=== PATIENT | female | born 1995 | race Caucasian/White ===

== ENCOUNTER 2021-07-15 16:01 | Emergency (ER) | payer OTHER, BC, SELFPAY ==
[2021-07-15 16:21] VITALS: BP 111/78; PULSE 89; RESP 16; TEMP 36.9; O2SAT 98; BMI 34.1
[2021-07-15 19:42] VITALS: BP 115/69; PULSE 81; RESP 17; TEMP 37.1; O2SAT 100
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
[2021-07-15 21:17] VITALS: BP 117/79; PULSE 78; RESP 16; O2SAT 100
[2021-07-15] MEDS: Cyclobenzaprine HCl 10 MG TABLET PO (21:18)
[2021-07-15] MEDS: Ibuprofen 600 MG TABLET PO (21:18)
--- NOTE | 2021-07-15 22:36 | PC.NURSE ---
PT UNDERSTANDS TO FOLLOW UP WITH PCP, RETURN IF PAIN NOT MANAGEABLE WITH OTC AND RX MEDICATIONS. PT AMBULATORY WITH [facility]. REPORTS HER PAIN HAS IMPROVED FOLLOWING MEDICATIONS RECEIVED. PT WAITING WITH [facility]END IN [facility].
== END 2021-07-15 22:38 | disposition home or self-care (01) ==
PROVIDERS: Emergency Provider Emergency Medicine Emergency Medical Services
DX: S39.012A Strain of muscle, fascia and tendon of lower back, initial encounter (principal); S30.1XXA Contusion of abdominal wall, initial encounter; S13.9XXA Sprain of joints and ligaments of unspecified parts of neck, initial encounter; V43.52XA Car driver injured in collision with other type car in traffic accident, initial encounter; Y93.9 Activity, unspecified; Y92.410 Unspecified street and highway as the place of occurrence of the external cause; Y99.9 Unspecified external cause status; Z79.899 Other long term (current) drug therapy
CPT/HCPCS: 99283; 99285

== ENCOUNTER 2021-08-18 11:41 | Outpatient (REF) | payer BC, SELFPAY | END 2021-08-18 11:42 | disposition home or self-care (01) | LOC: HO.LNP 11:41 | PROVIDERS: Visit Provider Physician Assistant Medical | DX: L02.91 Cutaneous abscess, unspecified (principal) | CPT/HCPCS: 87071; 87205 ==

== ENCOUNTER 2022-12-04 17:00 | Outpatient (REF) | payer BC, SELFPAY ==
[2022-12-05 13:03] LABS: BV Int Neg Control Negative (Negative); BV Int Pos Control Positive (Positive)
== END 2022-12-04 17:01 | disposition home or self-care (01) ==
LOC: HO.LNP 17:00
PROVIDERS: Visit Provider Internal Medicine
DX: N76.0 Acute vaginitis (principal); B96.89 Other specified bacterial agents as the cause of diseases classified elsewhere
CPT/HCPCS: 87480; 87510; 87660

== ENCOUNTER 2023-02-07 09:29 | Outpatient (REF) | payer BC, SELFPAY ==
[2023-02-07 11:34] LABS: Appearance Urine Clear; Color Urine Yellow; Glucose Urine UA Negative (Negative); Leukocyte Esterase Urine Small (1+) (Negative); Nitrite Urine Negative (Negative); Specific Gravity - Urine >= 1.030 (1.005-1.025); UMIC TRIGGER UA YES; Urine Blood Negative (Negative); Urine Ketones Negative (Negative); Urine Protein Trace mg/dL (Neg-Trace)
[2023-02-07 11:38] LABS: Bacteria Urine 1+ (None Seen); Hyaline Casts Urine 0-2 /LPF (0-2); RBC Urine 0-2 /HPF (0-2)
[2023-02-07 11:44] LABS: Basophils Absolute Auto 0.1 X10*3/uL (0.0-0.2); Basophils Percent Auto 0.7 % (0-2); Eosinophils Absolute Auto 0.1 X10*3/uL (0.0-0.4); Eosinophils Percent Auto 1.8 % (0-4); Hemoglobin 13.3 g/dl (12.0-16.0); Imm Gran Abs Auto 0.01 X10*3/uL (0.00-0.03); Imm Gran Pct Auto 0.1 % (0.0-0.4); Lymphocytes Absolute Auto 2.2 X10*3/uL (1.2-4.9); Lymphocytes Percent Auto 28.2 % (20-40); MANUAL DIFF FLAG SCAN; Mean Corpuscular HGB Conc 31.7 g/dl (31.0-35.0); Mean Corpuscular Hemoglobin 26.6 pg (27.0-33.0); Mean Platelet Volume 11.8 fL (9.4-12.3); Monocytes Absolute Auto 0.5 X10*3/uL (0.1-1.2); Monocytes Percent Auto 6.1 % (2-11); Neutrophils Absolute Auto 4.8 x10*3/uL (2.0-8.3); Neutrophils Percent Auto 63.1 % (45-73); PLT CLUMP 1; Red Cell Distribution Width 14.4 % (11.0-16.0); SCAN SMEAR FLAG 1
[2023-02-07 11:45] LABS: Platelet Count 165 X10*3/uL (160-400); White Blood Count 7.7 X10*3/uL (4.8-10.8)
[2023-02-07 11:59] LABS: SLIDE REVIEW VERIFIED
[2023-02-07 12:04] LABS: HBS Num1 0.83 mIU/mL (0-7.99); HIV AB/AG Nonreactive (Nonreactive); HIV Num 1 0.06 S/CO (0.00-0.99); ~Hepatitis B Surface Antibody NONREACTIVE (Nonreactive)
[2023-02-07 12:06] LABS: Syphilis Screen Nonreactive (Nonreactive)
[2023-02-07 12:07] LABS: Alanine Aminotransferase 15 U/L (0-31); Albumin Level 4.4 g/dL (3.5-5.0); Alkaline Phosphatase 76 U/L (39-117); Anion Gap 11 (12-20); Aspartate Amino Transferase 18 U/L (5-31); Bilirubin Total 0.6 mg/dL (0.0-1.0); Blood Urea Nitrogen 11 mg/dL (9-16); Calcium 9.4 mg/dL (8.4-10.2); Carbon Dioxide 25 mmol/L (22-29); Chloride 108 mmol/L (96-108); Cholesterol 144 mg/dL; Estimated Glomerular Filt Rate > 60; Glucose Fasting 84 mg/dL (60-99); HDL Cholesterol 37 mg/dL; LDL Cholesterol Calculated 95 mg/dl; Potassium 4.1 mmol/L (3.3-5.1); Sodium 140 mmol/L (135-145); Total Protein 7.6 g/dL (6.5-8.0); Triglycerides 63 mg/dL
[2023-02-07 14:25] LABS: CT PCR NOT DETECTED (Not Detect.); NG PCR NOT DETECTED (Not Detect.)
[2023-02-10 07:39] LABS: TS Negative Control Passed; TS Panel A 0; TS Panel B 0; TS Positive Control Passed; TSpotTB Negative (Negative)
== END 2023-02-07 09:30 | disposition home or self-care (01) ==
LOC: HO.HMGCLDS 09:29
PROVIDERS: PCP Internal Medicine; Visit Provider Internal Medicine
DX: Z00.00 Encounter for general adult medical examination without abnormal findings (principal); Z11.4 Encounter for screening for human immunodeficiency virus [HIV]; J45.909 Unspecified asthma, uncomplicated; Z20.2 Contact with and (suspected) exposure to infections with a predominantly sexual mode of transmission
CPT/HCPCS: 0353U; 80053; 80061; 81001; 85025; 86481; 86706; 86780; 87389

== ENCOUNTER 2023-06-18 10:11 | Outpatient (REF) | payer BC, SELFPAY ==
[2023-06-19 04:41] LABS: ~Hepatitis B Surface Antibody REACTIVE (Nonreactive)
== END 2023-06-18 10:12 | disposition home or self-care (01) ==
LOC: HO.HMGCLDS 10:11
PROVIDERS: PCP Internal Medicine; Visit Provider Internal Medicine
DX: Z00.00 Encounter for general adult medical examination without abnormal findings (principal)
CPT/HCPCS: 36415; 86706

== ENCOUNTER 2023-09-03 12:45 | Outpatient (AMB) | payer BC, SELFPAY ==
--- OUTSIDE RECORDS SUMMARY | 2023-09-03 12:46 | XMS_ITS | Continuity of Care Document ---
Author Name Unknown Organization [facility] Adult Address [address] [place] [address]- Care Team Providers Care Chess Instructor Name Role Phone Mi MAY, [facility] Primary Care Physician ( [phone] Encounter [facility] [place] Date(s): 02/20/20 - 03/01/20 [facility] Adult [address] [place] [address] [facility] Attending Physician: Jessica Kelley Admitting Physician: Jessica Kelley Referring Physician: AdmJessica alfredo Allergies, Adverse Reactions, Alerts Substance Reaction Severity Status doxycycline Stomach upset Active penicillin Swollen face Rash Active Immunizations Given and Recorded Vaccine Date Status Refusal Reason Influenza Virus Vaccine (oldterm) 08/28/19 Recorde d tetanus/diphtheria/pertussis, acel(Tdap) 01/02/19 Given influenza virus vaccine, inactivated 01/02/19 Give n Problem List Condition Effective Dates Status Health Status Inform ant Anxiety(Confirmed) Active Obesity(Confirmed) Active Social History Social History Type Response Smoking Status Former smoker, quit more than 30 days ago; Tobacco user in household: No entered on: 01/06/20 Sex
--- OUTSIDE RECORDS SUMMARY | 2023-09-03 12:46 | XMS_ITS | Continuity of Care Document ---
Author Name Unknown Organization [facility] Adult Address [address] [place] [address]- Care Team Providers Care Green Coffee Blender Name Role Phone Brenda Stark MD Primary Care Physician [place] [facility] [place](s): 01/06/20 - 01/13/20 [facility] [address] [place] [id number] [facility] Encounter Diagnosis Minor depression(Discharge Diagnosis) - 01/06/20 Obesity(Discharge Diagnosis) - 01/06/20 Annual physical exam(Discharge Diagnosis) - 01/06/20 Atypical nevi(Discharge Diagnosis) - 01/06/20 Attending Physician: Brenda Stark MD Allergies, Adverse Reactions, Alerts Substance Reaction Severity Status doxycycline Stomach upset Active penicillin Swollen face Rash Active Immunizations Given and Recorded Vaccine Date Status Refusal Reason Influenza Virus Vaccine (oldterm) 08/28/19 Recorde d tetanus/diphtheria/pertussis, acel(Tdap) 01/02/19 Given influenza virus vaccine, inactivated 01/02/19 Give n Medications Penicillin Tablet By Mouth, Every 6 hours, Maintenance, 06/17/19 13:13:18 EDT Start Date: 06/17/19 Status: Ordered Problem List Condition Effective Dates Status Health Status Inform ant Obesity(Confirmed) Active Diagnosis Diagnosis Type Effective Dates Health Status Clinical Service Informant Minor depression Discharge Diagnosis 01/06/20 Obesity Discharge Diagnosis 01/06/20 Annual physical exam Discharge Diagnosis 01/06/20 Atypical nevi Discharge Diagnosis 01/06/20 Vital Signs Most recent to oldest [Reference Range]: 1 Height 165 cm (01/06/20 9:00 AM) Weight 90.5 kg (01/06/20 9:00 AM) Pulse Rate [55-90 bpm] 65 bpm (01/06/20 9:00 AM) Body Mass Index [18.5-24.99] 33.24 *>HHI* (01/06/20 9:00 AM) Blood Pressure [90-138/55-84 mm Hg] 110/ 70mm Hg (01/06/20 9:00 AM) Respiratory Rate [16-30 br/min] 16 br/mi n (01/06/20 9:00 AM) Temperature [96.8-100.4 DegF] 98.1 DegF (01/06/20 9:00 AM) Mode of Delivery (Oxygen) Room air (01/06/20 9:00 AM) Blood pressure sites Arm, left (01/06/20 9:00 AM) Temperature Route Oral (01/06/20 9:00 AM) Weight Obtained Via Standing scale (01/06/20 9:00 AM) Social History Social History Type Response Smoking Status Former smoker, quit more than 30 days ago; Tobacco user in household: No entered on: 01/06/20 Sex
--- OUTSIDE RECORDS SUMMARY | 2023-09-03 12:46 | XMS_ITS | Continuity of Care Document ---
Author Name Unknown Organization [facility] Adult Address [address] [place] [address]- Care Team Providers Care Wet Primer Powder Blender Name Role Phone Mi MAY, [facility] Primary Care Physician ( [phone] Encounter [facility] [place] Date(s): 08/18/21 - 09/17/21 [facility] Adult [address] [place] [address]- Allergies, Adverse Reactions, Alerts Substance Reaction Severity [...]
--- OUTSIDE RECORDS SUMMARY | 2023-09-03 12:46 | XMS_ITS | Continuity of Care Document ---
Author Name Unknown Organization [facility] Adult Address [address] [place] [address]- Care Team Providers Care Social Work Professor Name Role Phone Mi MAY, [facility] Primary Care Physician Encounter [facility] [place] Date(s): 02/08/22 - 03/10/22 [facility] Adult [address] [place] [address]- Allergies, Adverse Reactions, Alerts Substance Reaction Severity [...]
--- OUTSIDE RECORDS SUMMARY | 2023-09-03 12:47 | XMS_ITS | Continuity of Care Document ---
Author Name Unknown Organization [facility] Adult Address [address] [place] [address]- Care Team Providers Care Printing Equipment Mechanic Apprentice Name Role Phone Brenda Stark MD Primary Care Physician ( [phone] Encounter [facility] [place] Date(s): 02/20/20 - 02/27/20 [facility] Adult [address] [place] [id number] [facility] Encounter Diagnosis Anxiety(Discharge Diagnosis) - 02/20/20 Attending Physician: Brenda Stark MD Allergies, Adverse Reactions, Alerts Substance Reaction Severity Status doxycycline Stomach upset Active penicillin Swollen face Rash Active Immunizations Given and Recorded Vaccine Date Status Refusal Reason Influenza Virus Vaccine (oldterm) 08/28/19 Recorde d tetanus/diphtheria/pertussis, acel(Tdap) 01/02/19 Given influenza virus vaccine, inactivated 01/02/19 Give n Problem List Condition Effective Dates Status Health Status Inform ant Anxiety(Confirmed) Active Obesity(Confirmed) Active Diagnosis Diagnosis Type Effective Dates Health Status Clini christopher Service Informant Anxiety Discharge Diagnosis 02/20/20 Social History Social History Type Response Smoking Status Former smoker, quit more than 30 days ago; Tobacco user in household: No entered on: 01/06/20 Sex
--- OUTSIDE RECORDS SUMMARY | 2023-09-03 12:47 | XMS_ITS | Continuity of Care Document ---
Author Name Unknown Organization [facility] Adult Address [address] [place] [address]- Care Team Providers Care Inspector Timers Name Role Phone Mi MAY, [facility] Primary Care Physician Encounter [facility] [place] Date(s): 01/24/22 - 02/23/22 [facility] Adult [address] [place] [address]- Allergies, Adverse Reactions, Alerts Substance Reaction Severity [...]
[2023-09-03 14:35] VITALS: BP 114/80; PULSE 74; TEMP 36.7; O2SAT 99; BMI 37.2
--- NOTE | 2023-09-03 14:35 | AM.OFFWIN_ITS ---
Intake Vital Signs 09/03/23 14:35 Height 5 ft 5 in Weight 223 lb 8 oz BMI 37.2 BP 114/80 Blood Pressure Location Lt brachial Position Sitting Pulse 74 Pulse Source Pulse Oximeter Temp 98.0 F Temp Source Oral Pulse Oximetry (%) 99 Oxygen Delivery Method Room Air Intake Visit Reasons: EP Lower back pain Intake Note: Pt presents to the office today for c/o lower back pain that started yesterday morning 09/02/23. Pt doesn't recall any injury to her back. 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 Patient Tobacco Use Status: Never used Tobacco Allergies Penicillins [PCN] Allergy (Unknown, Verified 09/03/23 14:38) UNKNOWN HPI EP Lower back pain HPI Details patient is a 28-year-old female who presents today for a sick visit. Patient has no significant past medical history. patient's chief complaint right sided lower back pain x1 day. Patient states that they woke up yesterday with pain in the right lower back, patient denies any falls , cracks or pops. Patient states they have been using lidocaine patches, Motrin and Biofreeze with mild effect. 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 Patient denies burning or numbness down her legs. [facility] Family History Father Hypertension Mother Hypertension Type 2 diabetes mellitus Social History (Updated 09/03/23 @ 14:38 by Kathleen Trujillo MA) Household Members Other:: lives with girlfriend, works as EMT in [place] Housing: Apartment Alcohol intake: current Alcohol intake frequency: a few times a month Patient Tobacco Use Status: Never used Tobacco e-Cigarette/Vaping Use: Never Used Current occupational status: employed Cognitive needs: No Hearing needs: No Vision needs: No Review of Systems Musc Reports as per HPI Physical Exam Vital Signs: Last Vital Signs Temp 98.0 F 09/03/23 14:35 Pulse 74 09/03/23 14:35 BP 114/80 09/03/23 14:35 Pulse Ox 99 09/03/23 14:35 Oxygen Delivery Method Room Air 09/03/23 14:35 BMI result Body Mass Index 37.2 Const General: cooperative and no acute distress Orientation/consciousness: patient oriented x3 Limitations: no limitations Back/Spine/Pelvis Thoracic/Lumbar Spine: thoracic and lumbar spine normal to inspection, pain with thoraco-lumbar ROM ( Mild pain), straight leg raise positive ( right-sided) and other ( no obvious deformity, no point tenderness over spine) Sacroiliac joints: on the right Sacrum: no tenderness and No sacral edema Neuro General: patient oriented x3 Assessment & Plan Assessment & Plan (1) Lower back injury: Code(s): S39.92XA - Unspecified injury of lower back, initial encounter Qualifiers: Encounter type: initial encounter Qualified Code(s): S39.92XA - Unspecified injury of lower back, initial encounter Plan patient is instructed to continue using Motrin in lidocaine per instructions. Patient instructed to rest back and use ergonomically friendly movements. Patient will be given 10 mg Flexeril to be taken at night, educated to not operate heavy machinery. Patient instructed to return to the walk-in clinic if symptoms increase. Medications: New cyclobenzaprine 10 mg PO BEDTIME 7 tabs 0RF Coding Level of Care Code Est Pt Level 3 (10348) Diagnoses Injury of low back, initial encounter S39.92XA Encounter type: initial encounter Time Spent (min) 15
== END 2023-09-03 15:17 | disposition home or self-care (01) ==
PROVIDERS: PCP Internal Medicine; Visit Provider Nurse Practitioner Primary Care
DX: M54.50 Low back pain, unspecified (principal)
CPT/HCPCS: 99213

== ENCOUNTER 2025-04-07 08:50 | Outpatient (AMB) | payer OTHER, SELFPAY ==
[2025-04-07 08:59] VITALS: BP 110/70; PULSE 92; RESP 18; TEMP 36.5; O2SAT 97; BMI 35.6
--- NOTE | 2025-04-07 08:59 | A.OFFPC_ITS ---
Vital Signs 04/07/25 08:59 Height 5 ft 5 in Weight 214 lb BMI 35.6 BP 110/70 Blood Pressure Location Rt brachial Position Sitting Respiration 18 Pulse 92 Pulse Source Pulse Oximeter Temp 97.7 F Temp Source Oral Pulse Oximetry (%) 97 Oxygen Delivery Method Room Air Intake Visit Reasons: ER follow up Intake Note: Pt is here today for ER follow up visit. Allergies Penicillins [PCN] Allergy (Unknown, Verified 04/07/25 09:01) UNKNOWN Medication List - Last Reconciled 04/07/25 by Ciarra Phillip MD albuterol sulfate 90 mcg/actuation 2 puffs inhalation Q4H PRN Tobacco use date assessed: 04/07/25 Dental Screening Dental Screen Date: 04/07/25 Did you have a dental visit in the last 12 months?: Yes Did you have a dental problem in the last 6 months where you did not have access to dental care?: No Was dental information given to patient?: Patient has dentist HPI ER follow up HPI Details Pt presents for f/u ER visit for LBP after lifting heavy at work. Pt recovered completely. She has started going to the gym working on her core muscle strength. Patient would like to return back to work today. 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 69849 - PHQ-9 Billing: Patient declined-do not bill Source: Developed by Drs. Aaron Berkowitz, Milagro Mills, Fabian Almeida and colleagues, with an educational phillip from [employer]. Thrive Questionnaire Date Thrive assessed: 04/07/25 I am a: Patient What is your living situation today?: I have a steady place to live Within the past 12 months, did the food you bought not last and you didn't have the money to get more?: Never true Within the past 12 months, did you worry whether your food would run out before you got money to buy more?: Never true Do you have trouble paying for medicines?: No Do you have trouble getting transportation to medical appointments?: No Do you have trouble paying your heating and electricity bill?: No Do you have trouble taking care of your child, family member or friend?: No Do you have trouble with day-to-day activities such as bathing, preparing meals, shopping, managing finances, etc.?: No Are you currently unemployed and looking for a job?: No Are you interested in more education?: No THRIVE Score: 0 AUDIT C Alcohol Use Questionnaire (AUDIT-C) 1. How often do you have a drink containing alcohol?: Monthly or less 2. How many drinks containing alcohol do you have on a typical day when you are drinking?: 1 or 2 3. How often do you have six or more drinks on one occasion?: Never Total Score: 1 SAMMIE-7 AMB Questionnaire SAMMIE-7 Date SAMMIE - 7 assessed: 04/07/25 Feeling nervous, anxious, or on edge: 0 = Not at all Not being able to stop or control worryin = Not at all Worrying too much about different things: 0 = Not at all Trouble relaxin = Not at all Being so restless that it is hard to sit still: 0 = Not at all Becoming easily annoyed or irritable: 0 = Not at all Feeling afraid as if something awful might happen: 0 = Not at all Total SAMMIE-7 score (0-4 normal; 5-9 mild; 10-14 moderate; 15-21 severe): 0 Source: Developed by Drs. Aaron Berkowitz, Milagro Mills, Fabian Almeida and colleagues, with an educational phillip from [employer]. ASMMIE-7 Assessment Billing SAMMIE-7 Assessment Tool: SAMMIE-7 Assessment 55458 Review of Systems Const All systems reviewed & are unremarkable except as noted in HPI and below Eyes Reports no additional complaints ENT Reports no additional complaints Card Reports no additional complaints Resp Reports no additional complaints GI Reports no additional complaints Reports no additional complaints Physical exam (Primary Care) Vital Signs: Last Vital Signs Temp 97.7 F 04/07/25 08:59 Pulse 92 04/07/25 08:59 Resp 18 04/07/25 08:59 BP 110/70 04/07/25 08:59 Pulse Ox 97 04/07/25 08:59 Oxygen Delivery Method Room Air 04/07/25 08:59 BMI result Body Mass Index 35.6 Tobacco/Smoking Status: Tobacco use Status Tobacco use date assessed 04/07/25 04/07/25 09:05 Patient Tobacco Use Status Never used Tobacco 04/07/25 09:05 e-Cigarette/Vaping Use Never Used 04/07/25 09:05 Thrive Assessment: Date of Thrive Assessment Date Thrive assessed 04/07/25 04/07/25 09:05 Const General: no acute distress HENMT Head: Yes normal to inspection Resp Effort & Inspection: normal respiratory effort Auscultation: clear to auscultation bilaterally Cardio Rhythm: regular rhythm Heart sounds: S1 normal heart sound present and S2 normal heart sound present Back/Spine/Pelvis Thoracic/Lumbar Spine: thoracic and lumbar spine normal to inspection, No paraspinal muscle tenderness and No lumbar spinal tenderness Coding Level of Care Code Est Pt Level 3 (06007) Diagnoses Lower back pain M54.50 Additional Codes SAMMIE-7 Assessment Billing - SAMMIE-7 Assessment Tool: SAMMIE-7 Assessment 77973 ([id number]) Assessment & Plan Assessment & Plan (1) Lower back pain: Code(s): M54.50 - Low back pain, unspecified Category: Medical Plan: Resolved, patient will return to work today without restrictions Medications: Refilled albuterol sulfate 90 mcg/actuation 2 puffs inhalation Q4H PRN 8.5 grams 4RF dyspnea
--- OUTSIDE RECORDS SUMMARY | 2025-04-07 09:28 | XMS_ITS | Patient Health Record ---
Author Organization [facility] Address [address] [place] [id number] Care Team Providers Care Greeter Name Role Phone ROB GARCIA Unavailable [phone] Allergies Allergen (clinical drug ingredient) Drug/Non Drug Allergy documented on EMR Reaction Allergy Type Onset Date Status Penicillin rash Drug Allergy Active Reason For Referral No Information Medications Medication SIG (Take, Route, Fr equency, Duration) Notes Start Date End Date Status Albuterol PRN Unknown Valtrex 500 MG 1 tablet Orally Q 12 hr for 3 days 12/08/2022 Unknown Social History Tobacco Use: Social History Observation Description Date Details (start date - stop date) Never Smoker NA - NA Tobacco Use/Smoking Question Answer Notes Are you a nonsmoker Alcohol Screen (Audit-C) Question Answer Notes Did you have a drink contain ing alcohol in the past year? Yes How often did you have a dri nk containing alcohol in the past year? Monthly or less (1 point) How many drinks did you have on a typical day when you were drinking in the past year? 5 or 6 drinks (2 points) How often did you have 6 or more drinks on one occasion in the past year? Less than monthly (1 point) Points 4 Interpretation Positive Tobacco use other than smoking: Question Answer Notes Are you an other tobacco user? 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 B SURF. AG 06/07/2020 SYPHILIS TESTING 06/07/2020 HIV AB-AG 4TH GENERATION 06/07/2020 Insurance Providers Payer Name Payer Address Payer Phone Subscriber Number Group Number Insured Name Patient Relationship to Insured Coverage Start Date Coverage End Date [employer] [place] [address] [place] [address] [id number] Medical (General) History Medical History History ICD Code Hidradenitis suppurativa L73.2 COVID-19 U07.1 Surgical History Surgery Date(Month/Year) Hospitalization History Reason Date(Month/Year) kidney stone 2013
== END 2025-04-07 09:26 | disposition home or self-care (01) ==
PROVIDERS: PCP Internal Medicine; Visit Provider Internal Medicine
DX: M54.50 Low back pain, unspecified (principal)

== ENCOUNTER → 2025-04-07 08:50 | Outpatient (BNVA) | payer SELFPAY | PROVIDERS: PCP Internal Medicine; Visit Provider Internal Medicine | DX: M54.50 Low back pain, unspecified (principal) | CPT/HCPCS: 96127 ==